=== PATIENT | female | born 1970 | race Caucasian/White ===

== ENCOUNTER → 2017-10-03 | Outpatient (CLI) | payer OTHER ==
[2017-10-03 13:32] LABS: HEMOGLOBIN A1C 5.2 % (4.5-5.6)
[2017-10-03 13:50] LABS: BLOOD UREA NITROGEN 54 mg/dl (7-18); CALCIUM 8.7 mg/dl (8.5-10.1); CARBON DIOXIDE 21 mmol/L (21-32); CREATININE 3.79 mg/dl (0.60-1.20); GLUCOSE 100 mg/dl (70-99); POTASSIUM 5.7 mmol/L (3.5-5.1); SODIUM 141 mmol/L (136-145)
== END | disposition home or self-care (01) ==
LOC: C.LABMFLN 08:10
PROVIDERS: ATTEND Family Medicine
DX: E11.42 Type 2 diabetes mellitus with diabetic polyneuropathy (principal); G60.9 Hereditary and idiopathic neuropathy, unspecified

== ENCOUNTER → 2017-10-04 | Outpatient (CLI) | payer OTHER ==
[2017-10-04 13:18] LABS: HEMOGLOBIN 8.6 g/dL (12.0-16.0); MEAN CELL VOLUME 90.9 fL (80-100); MEAN CORPUSCULAR HEMOGLOBIN 30.1 pg (25-34); MEAN CORPUSCULAR HGB CONC 33.1 g/dl (32-36); PLATELET COUNT 225 K/uL (130-400); RED CELL DISTRIBUTION WIDTH SD 46.7 fL (36.4-46.3); WHITE BLOOD COUNT 7.38 K/uL (4.8-10.8)
[2017-10-04 13:42] LABS: ALBUMIN 3.3 gm/dl (3.4-5.0); ALKALINE PHOSPHATASE 160 U/L (45-117); ALT/SGPT 26 U/L (12-78); AST/SGOT 13 U/L (15-37); BLOOD UREA NITROGEN 49 mg/dl (7-18); CALCIUM 8.7 mg/dl (8.5-10.1); CARBON DIOXIDE 24 mmol/L (21-32); CREATININE 3.53 mg/dl (0.60-1.20); GLUCOSE 98 mg/dl (70-99); PHOSPHORUS 4.3 mg/dl (2.5-4.9); POTASSIUM 5.7 mmol/L (3.5-5.1); SODIUM 140 mmol/L (136-145); TOTAL PROTEIN 7.7 gm/dl (6.4-8.2)
== END | disposition home or self-care (01) ==
LOC: C.LABMFLN 09:32
PROVIDERS: ATTEND Family Medicine
DX: N18.4 Chronic kidney disease, stage 4 (severe) (principal)

== ENCOUNTER → 2017-10-05 | Outpatient (CLI) | payer OTHER ==
[2017-10-05 18:00] LABS: ALBUMIN 3.3 gm/dl (3.4-5.0); BLOOD UREA NITROGEN 53 mg/dl (7-18); CALCIUM 8.7 mg/dl (8.5-10.1); CARBON DIOXIDE 22 mmol/L (21-32); CREATININE 3.66 mg/dl (0.60-1.20); GLUCOSE 107 mg/dl (70-99); PHOSPHORUS 4.1 mg/dl (2.5-4.9); POTASSIUM 5.5 mmol/L (3.5-5.1); SODIUM 141 mmol/L (136-145); URIC ACID 7.1 mg/dl (2.6-7.2)
== END | disposition home or self-care (01) ==
LOC: C.LABMFLN 12:27
PROVIDERS: ATTEND Internal Medicine Nephrology
DX: N17.9 Acute kidney failure, unspecified (principal)

== ENCOUNTER → 2017-10-08 | Outpatient (CLI) | payer OTHER | END | disposition home or self-care (01) | LOC: C.LABMFLN 08:28 | PROVIDERS: ATTEND Family Medicine | DX: N18.4 Chronic kidney disease, stage 4 (severe) (principal) ==

== ENCOUNTER → 2017-10-10 | Outpatient (CLI) | payer OTHER ==
[2017-10-10 19:04] LABS: ALBUMIN 3.1 gm/dl (3.4-5.0); BLOOD UREA NITROGEN 57 mg/dl (7-18); CARBON DIOXIDE 21 mmol/L (21-32); CREATININE 3.61 mg/dl (0.60-1.20); GLUCOSE 119 mg/dl (70-99); PHOSPHORUS 5.2 mg/dl (2.5-4.9); POTASSIUM 5.4 mmol/L (3.5-5.1); SODIUM 141 mmol/L (136-145)
== END | disposition home or self-care (01) ==
LOC: C.LABMFLN 12:56
PROVIDERS: ATTEND Internal Medicine Nephrology
DX: N17.9 Acute kidney failure, unspecified (principal)

== ENCOUNTER → 2017-10-12 | Outpatient (CLI) | payer OTHER | END | disposition home or self-care (01) | LOC: C.LABMFLN 15:24 | PROVIDERS: ATTEND Internal Medicine Nephrology | DX: N18.5 Chronic kidney disease, stage 5 (principal) ==

== ENCOUNTER 2017-10-22 10:56 | Emergency (ER) | payer MEDICARE, OTHER ==
[~2017-10-22] VITALS: Ht 177.8 cm; Wt 137.2 kg
[2017-10-22 10:58] VITALS: TEMP 36.6; Ht 177.8 cm; Wt 137.2 kg
[2017-10-22 12:25] LABS: BASO % 0.3 %; BASO ABS # 0.02 K/uL (0-0.2); EOS % 1.1 %; EOS ABS # 0.09 K/uL (0-0.5); HEMATOCRIT 24.2 % (37-47); HEMOGLOBIN 8.2 g/dL (12.0-16.0); IG# 0.03 K/uL (0.00-0.02); LYMPH % 22.1 %; LYMPH ABS # 1.74 K/uL (1.2-3.4); MEAN CORPUSCULAR HEMOGLOBIN 30.5 pg (25-34); MEAN CORPUSCULAR HGB CONC 33.9 g/dl (32-36); MEAN PLATELET VOLUME 9.4 fL (7.4-10.4); MONO ABS # 0.63 K/uL (0.11-0.59); NEUT % 68.1 %; NEUT ABS # 5.35 K/uL (1.4-6.5); PLATELET COUNT 223 K/uL (130-400); RED CELL DISTRIBUTION WIDTH SD 46.1 fL (36.4-46.3); WHITE BLOOD COUNT 7.86 K/uL (4.8-10.8)
[2017-10-22 12:37] LABS: ALBUMIN 3.6 gm/dl (3.4-5.0); ALKALINE PHOSPHATASE 145 U/L (45-117); ALT/SGPT 24 U/L (12-78); AST/SGOT 18 U/L (15-37); BLOOD UREA NITROGEN 53 mg/dl (7-18); CALCIUM 8.9 mg/dl (8.5-10.1); CARBON DIOXIDE 25 mmol/L (21-32); GLUCOSE 107 mg/dl (70-99); POTASSIUM 4.6 mmol/L (3.5-5.1); SODIUM 137 mmol/L (136-145); TOTAL PROTEIN 7.9 gm/dl (6.4-8.2)
--- NOTE | 2017-10-22 13:02 | DIAGNOSTIC IMAGING REPORT ---
BILATERAL LOWER EXTREMITY VENOUS DOPPLER HISTORY: Lower extremity edema. COMPARISON STUDY: None. FINDINGS: There is normal compressibility, flow, and augmentation within the bilateral lower extremity deep venous systems. IMPRESSION: No DVT within the right or left lower extremity. Electronically signed by: Jarvis Chávez M.D. 10/22/2017 1:00 PM Dictated Date/Time: 10/22/2017 1:00 PM
[2017-10-22] MEDS ORDERED: FUROSEMIDE 20 MG TAB PO STA (15:09)
--- NOTE | 2017-10-22 15:16 | EMERGENCY ROOM VISIT NOTE ---
History Report prepared by [place]: Estefanía Guerrero Under the Supervision of: Dr. Connie Bruce D.O. First contact with patient: 11:47 Chief Complaint: EDEMA TO EXTREMITY Stated Complaint: STAGE 5 RENAL FAILURE, [place] History of Present Illness The patient is a 47 year old female who presents to the Emergency Room with complaints of worsening edema to her bilateral legs starting 2 days ago. The patient states that she found out she was Stage 5 Kidney Disease 4 weeks ago. She reports that she has not started dialysis yet, but is scheduled for an appointment on Sunday. She reports that she has had issues with her legs swelling in the past, but usually once she puts them up she is fine. She states that this time she will have them up for hours and they will be swollen minutes after she puts them back down. She reports that it feels like they are burning and "being torn apart." She notes that she now feels like she is swelling in her arms and hands as well. She notes that when she urinates it only trickles out and is very pale in color. The patient complains of a chronic headache, nausea, constipation, her chest feeling tight, and feeling like she cannot get a full breath. The patient denies diarrhea, vomiting, issues with diabetes, and a history of kidney stones/infection. The patient notes that recently she has been hypertensive. Source of History: patient Onset: 2 dasy ago Position: leg (bilateral) Quality: other (edema) Timing: worsening Modifying Factors (Worsening): other (having her feet down) Modifying Factors (Relieving): other (having her feet up) Associated Symptoms: + headache, + nausea, No vomiting, No diarrhea Note: The patient complains of swelling into her arms/hands, constipation, chest tightness, and feeling like she cannot get a full breath. Review of Systems See HPI for pertinent positives & negatives. A total of 10 systems reviewed and were otherwise negative. Past Medical & Surgical Medical Problems: (1) Stage 5 chronic kidney disease Family History FHx: kidney disease Social History Smoking Status: Former Smoker Marital Status: Housing Status: lives with family Current/Historical Medications Scheduled Furosemide (Lasix), 20 MG PO DAILY Allergies Coded Allergies: Acetaminophen (Unverified Adverse Reaction, Severe, N\\V, 10/22/17) Hydrocodone (Unverified Adverse Reaction, Severe, N/V, 10/22/17) Oxycodone (Unverified Adverse Reaction, Severe, N\\V, 10/22/17) Physical Exam Vital Signs Date Time Temp Pulse Resp B/P (MAP) Pulse Ox O2 Delivery O2 Flow Rate FiO2 10/22/17 15:25 89 18 153/93 98 10/22/17 13:37 88 14 158/86 100 Room Air 10/22/17 12:26 90 173/93 100 Room Air 10/22/17 11:48 90 10/22/17 10:58 36.6 100 18 155/93 100 Room Air Physical Exam GENERAL: alert, well appearing, well nourished, no distress, non-toxic EYE EXAM: normal conjunctiva, PERRL and EOM's grossly intact OROPHARYNX: no exudate, no erythema, lips, buccal mucosa, and tongue normal and mucous membranes are moist NECK: supple, no nuchal rigidity, no adenopathy, non-tender LUNGS: Clear to auscultation. Normal chest wall mechanics HEART: no murmurs, S1 normal and S2 normal ABDOMEN: abdomen is obese and soft, non-tender, normo-active bowel sounds, no masses, no rebound or guarding. BACK: Back is symmetrical on inspection and there is no deformity, no midline tenderness, no CVA tenderness. SKIN: no rashes and no bruising UPPER EXTREMITIES: upper extremities are grossly normal. LOWER EXTREMITIES: 2-3+ pitting edema almost up to the level of the knees bilateral lower extremities. No overlying skin rash or erythema. Normal pulses. Normal capillary refill. No bony tenderness. No deformities. NEURO EXAM: Normal sensorium, cranial nerves II-XII grossly intact, normal speech, no gross weakness of arms, no gross weakness of legs. Medical Decision & Procedures ER Provider Diagnostic Interpretation: Radiology results have been interpreted by the radiologist and reviewed by me. BILATERAL LOWER EXTREMITY VENOUS DOPPLER HISTORY: Lower extremity edema. COMPARISON STUDY: None. FINDINGS: There is normal compressibility, flow, and augmentation within the bilateral lower extremity deep venous systems. IMPRESSION: No DVT within the right or left lower extremity. Electronically signed by: Jarvis Chávez M.D. 10/22/2017 1:00 PM Dictated Date/Time: 10/22/2017 1:00 PM Laboratory Results 10/22/17 11:40 Red Blood Count 2.69, Mean Corpuscular Volume 90.0, Mean Corpuscular Hemoglobin 30.5, Mean Corpuscular Hemoglobin Concent 33.9, Mean Platelet Volume 9.4, Neutrophils (%) (Auto) 68.1, Lymphocytes (%) (Auto) 22.1, Monocytes (%) (Auto) 8.0, Eosinophils (%) (Auto) 1.1, Basophils (%) (Auto) 0.3, Neutrophils # (Auto) 5.35, Lymphocytes # (Auto) 1.74, Monocytes # (Auto) 0.63, Eosinophils # (Auto) 0.09, Basophils # (Auto) 0.02 10/22/17 11:40 Test 10/22/17 11:40 10/22/17 13:33 White Blood Count 7.86 K/uL (4.8-10.8) Red Blood Count 2.69 M/uL (4.2-5.4) Hemoglobin 8.2 g/dL (12.0-16.0) Hematocrit 24.2 % (37-47) Mean Corpuscular Volume 90.0 fL (80-100) Mean Corpuscular Hemoglobin 30.5 pg (25-34) Mean Corpuscular Hemoglobin Concent 33.9 g/dl (32-36) Platelet Count 223 K/uL (130-400) Mean Platelet Volume 9.4 fL (7.4-10.4) Neutrophils (%) (Auto) 68.1 % Lymphocytes (%) (Auto) 22.1 % Monocytes (%) (Auto) 8.0 % Eosinophils (%) (Auto) 1.1 % Basophils (%) (Auto) 0.3 % Neutrophils # (Auto) 5.35 K/uL (1.4-6.5) Lymphocytes # (Auto) 1.74 K/uL (1.2-3.4) Monocytes # (Auto) 0.63 K/uL (0.11-0.59) Eosinophils # (Auto) 0.09 K/uL (0-0.5) Basophils # (Auto) 0.02 K/uL (0-0.2) RDW Standard Deviation 46.1 fL (36.4-46.3) RDW Coefficient of Variation 14.0 % (11.5-14.5) Immature Granulocyte % (Auto) 0.4 % Immature Granulocyte # (Auto) 0.03 K/uL (0.00-0.02) Basophilic Stippling 1+ Prothrombin Time 10.1 SECONDS (9.0-12.0) Prothromb Time International Ratio 1.0 (0.9-1.1) Anion Gap 10.0 mmol/L (3-11) Est Creatinine Clear Calc Drug Dose 27.4 ml/min Estimated GFR () 15.4 Estimated GFR (Non- 13.3 BUN/Creatinine Ratio 14.1 (10-20) Calcium Level 8.9 mg/dl (8.5-10.1) Total Bilirubin 0.2 mg/dl (0.2-1) Aspartate Amino Transf (AST/SGOT) 18 U/L (15-37) Alanine Aminotransferase (ALT/SGPT) 24 U/L (12-78) Alkaline Phosphatase 145 U/L (45-117) Troponin I < 0.015 ng/ml (0-0.045) Pro-B-Type Natriuretic Peptide 765 pg/ml (0-450) Total Protein 7.9 gm/dl (6.4-8.2) Albumin 3.6 gm/dl (3.4-5.0) Globulin 4.3 gm/dl (2.5-4.0) Albumin/Globulin Ratio 0.8 (0.9-2) Urine Color YELLOW Urine Appearance CLEAR (CLEAR) Urine pH 7.0 (4.5-7.5) Urine Specific [place] 1.007 (1.000-1.030) Urine Protein 2+ (NEG) Urine Glucose (UA) NEG (NEG) Urine Ketones NEG (NEG) Urine Occult Blood 2+ (NEG) Urine Nitrite NEG (NEG) Urine Bilirubin NEG (NEG) Urine Urobilinogen NEG (NEG) Urine Leukocyte Esterase NEG (NEG) Urine WBC (Auto) 1-5 /hpf (0-5) Urine RBC (Auto) 10-30 /hpf (0-4) Urine Hyaline Casts (Auto) 0 /lpf (0-5) Urine Epithelial Cells (Auto) 10-20 /lpf (0-5) Urine Bacteria (Auto) NEG (NEG) Laboratory results per my review. Medications Administered Medications (Trade) Dose Ordered Sig/Errol Route Start Time Stop Time Status Last Admin Dose Admin Furosemide (Lasix Tab) 20 mg NOW STAT PO 10/22/17 15:09 10/22/17 15:10 DC 10/22/17 15:31 20 MG ECG Per My Interpretation Indication: SOB/dyspnea Rate (beats per minute): 91 Rhythm: sinus rhythm Findings: no acute ischemic change, no ectopy, other (normal axis, normal intervals) ED Course 1157: The patient was evaluated in room B3B. A complete history and physical exam was performed. 1325: I went to reevaluate the patient and she was still at ultrasound. 1505: I discussed the patient's case with Dr. Galeano-Nephtegan. He states that the patient can follow up in the office. 1509: Ordered Lasix Tab 20 mg PO. 1514: Upon reevaluation, the patient is feeling better. I discussed the findings and the treatment plan with the patient. She verbalizes agreement and understanding. The patient was discharged home. Medical Decision Differential diagnosis: Etiologies such as DVT, musculoskeletal, infection, joint effusion, trauma, lymphedema, idiopathic, CHF, as well as others were entertained. No evidence of DVT. Creatinine near where her levels have been previously, no other significant electrolyte abnormality's. H&H stable compared to prior levels also. I do not suspect occult infectious etiology. Case discussed with covering nephrology Dr. Galeano, who feels patient can be safely started on furosemide 20 mg daily. Patient given first dose here. Discussed with patient use and ADRs regarding this medication and follow-up with her usual pharmacy delivery driver Dr. Bermudez in a week. Patient well-appearing here, hemodynamically stable, verbalized understanding of all results and was agreeable with plan. Patient scheduled for PD catheter placement in [place] this week, which I feel is still appropriate at this time. No evidence of fulminant CHF, I do not suspect PE, or ACS. Discussed with patient symptoms to watch and return for, she verbalized understanding was agreeable with plan. Encouraged patient to continue elevating her feet and using compression stockings as much as possible. Medication Reconcilliation Current Medication List: was personally reviewed by me Blood Pressure Screening Patient's blood pressure: Elevated blood pressure Blood pressure disposition: Referred to PCP Consults Time Called: 1500 Consulting Physician: Dr. Galeano-Nephtegan Returned Call: 1505 I discussed the patient's case with Dr. Galeano-Albertrology. He states that the patient can follow up in the office. States she can be started on low-dose furosemide, 20 mg daily and they will reevaluate this medication when she follows up. Impression Primary Impression: Lower extremity edema Additional Impressions: CKD (chronic kidney disease) Anemia Scribe Attestation The scribe's documentation has been prepared under my direction and personally reviewed by me in its entirety. I confirm that the note above accurately reflects all work, treatment, procedures, and medical decision making performed by me. Departure Information Dispostion Home / Self-Care Prescriptions Furosemide (LASIX) 20 Mg Tab 20 MG PO DAILY, #30 Prov: Connie Bruce, DO 10/22/17 Referrals Juan Wong M.D. (PCP) Forms HOME CARE DOCUMENTATION FORM, IMPORTANT VISIT INFORMATION, WORK / SCHOOL INSTRUCTIONS Patient Instructions My [facility] Additional Instructions Please take the water pill daily with your other routine medications. Please elevate your legs when at rest and continue to try and wear compression stockings when you need to be ambulatory or standing. The any doctor's office will call you to arrange close follow-up. Please keep your appointment to have the dialysis catheter placed at [place]. If you have any worsening swelling, develop redness, blistering, sores with the swelling is, trouble breathing, fevers or chills, chest pains, vomiting, you have any other new and concerning symptoms, please return to the emergency room. Problem Qualifiers Additional Impressions: CKD (chronic kidney disease) Chronic kidney disease stage: stage 5, not on chronic dialysis Qualified Codes: N18.5 - Chronic kidney disease, stage 5 Anemia Anemia type: due to chronic kidney disease Chronic kidney disease stage: stage 5, not on chronic dialysis Qualified Codes: N18.5 - Chronic kidney disease, stage 5; D63.1 - Anemia in chronic kidney disease
[2017-10-22] MEDS ORDERED: FURO20TA PO (15:17)
[2017-10-22 15:25] VITALS: BP 153/93; PULSE 89; O2SAT 98
== END 2017-10-22 15:25 | disposition home or self-care (01) ==
LOC: C.EDB 10:57
DX: R60.0 Localized edema (principal); N18.5 Chronic kidney disease, stage 5; D63.1 Anemia in chronic kidney disease; Z87.891 Personal history of nicotine dependence; Z88.5 Allergy status to narcotic agent; Z88.6 Allergy status to analgesic agent

== ENCOUNTER → 2017-10-29 | Outpatient (CLI) | payer OTHER ==
[~2017-10-29] MED LIST: FURO20TA PO
[2017-10-29 12:42] LABS: HEMATOCRIT 24.7 % (37-47); HEMOGLOBIN 8.1 g/dL (12.0-16.0); MEAN CELL VOLUME 92.5 fL (80-100); MEAN CORPUSCULAR HEMOGLOBIN 30.3 pg (25-34); MEAN CORPUSCULAR HGB CONC 32.8 g/dl (32-36); MEAN PLATELET VOLUME 9.9 fL (7.4-10.4); PLATELET COUNT 212 K/uL (130-400); RED CELL DISTRIBUTION WIDTH CV 14.4 % (11.5-14.5); RED CELL DISTRIBUTION WIDTH SD 48.2 fL (36.4-46.3); WHITE BLOOD COUNT 7.11 K/uL (4.8-10.8)
[2017-10-29 14:04] LABS: ALBUMIN 3.4 gm/dl (3.4-5.0); BLOOD UREA NITROGEN 47 mg/dl (7-18); CALCIUM 8.8 mg/dl (8.5-10.1); CARBON DIOXIDE 24 mmol/L (21-32); CREATININE 4.25 mg/dl (0.60-1.20); GLUCOSE 108 mg/dl (70-99); PHOSPHORUS 5.3 mg/dl (2.5-4.9); POTASSIUM 4.5 mmol/L (3.5-5.1); SODIUM 138 mmol/L (136-145); TRANSFERRIN 253 mg/dl (200-360)
== END | disposition home or self-care (01) ==
LOC: C.LABMFLN 08:21
PROVIDERS: ATTEND Internal Medicine Nephrology
DX: N18.4 Chronic kidney disease, stage 4 (severe) (principal)